=== PATIENT | male | born 1965 | race Caucasian/White ===

== ENCOUNTER 2017-03-09 10:49 | Emergency (ER) | payer BC ==
[~2017-03-09] VITALS: Ht 182.9 cm; Wt 112.2 kg
[~2017-03-09 10:49] MED LIST: HYDROCODON-ACE1 EAC7 PO; INDERAL80 MG PO; LASIX40 MG PO; OMEPRAZOLE20 MG PO; REQUIP2 MG PO
[2017-03-09 13:29] LABS: EOSINOPHIL (%) 0.4 % (0-5); HEMATOCRIT 38.5 % (38.0-50.0); IMMATURE GRANULOCYTE (%) 0.5 % (0.0-0.7); INSTRUMENT ABS NEUTROPHIL CT 6.5 K/uL; LYMPHOCYTE COUNT 0.7 K/uL (1.0-2.8); MCH 32.8 PG (29.0-34.0); MCHC 33.8 G/DL (30.0-36.0); MCV 97.2 FL (86-99); MEAN PLAT.VOLUME 12.1 uM^3 (9.0-12.4); MONOCYTE (%) 4.9 % (3-12); MONOCYTE COUNT 0.4 K/uL (0-0.8); NEUTROPHIL (%) 84.7 % (45-76); NEUTROPHIL COUNT 6.5 K/uL (1.8-6.4); PLATELET COUNT 141 K/uL (156-360); RBC DIS.WIDTH-CV 11.9 % (11.8-14.6); RBC DIS.WIDTH-SD 42.7 % (39-53); RED BLOOD COUNT 3.96 M/uL (4.00-5.50); WHITE BLOOD COUNT 7.7 K/uL (4.1-10.2)
[2017-03-09 13:37] LABS: CHLORIDE 104 mEq/L (99-109); POTASSIUM 3.5 mEq/L (3.7-5.4); SODIUM 137 mEq/L (136-147)
[2017-03-09 13:39] LABS: GLUCOSE 93 mg/dL (70-99)
[2017-03-09 13:40] LABS: ANION GAP 8 MEQ/L (2-14)
[2017-03-09 13:41] LABS: TOTAL BILIRUBIN 1.9 mg/dL (0.0-1.0)
[2017-03-09 13:42] LABS: ALKALINE PHOSPHATASE 68 IU/L (3-129)
[2017-03-09 13:43] LABS: GFR ESTIMATE (CALCULATED) > 59 mL/min/
[2017-03-09 13:44] LABS: UREA NITROGEN (BUN) 19 mg/dL (9-23)
[2017-03-09 13:46] LABS: LIPASE 24 U/L (1.0-51.0)
[2017-03-09 13:49] LABS: TROP-I INTERPRETATION NEGATIVE; TROPONIN-I < 0.01 ng/mL (0.0-0.30)
[2017-03-09 15:14] VITALS: BP 110/61
== END 2017-03-09 15:16 | disposition home or self-care (01) ==
LOC: EME → EDBD 10:49 → EME 10:49
PROVIDERS: Emergency Medicine
DX: R10.10 Upper abdominal pain, unspecified (principal); Z98.84 Bariatric surgery status; F17.200 Nicotine dependence, unspecified, uncomplicated
CPT/HCPCS: 74177; 80053; 83690; 84484; 85025; 93005; 99281; 99285; J2405; J3010; J7030